=== PATIENT | male | born 1960 | race Caucasian/White ===

== ENCOUNTER 2024-09-01 08:00 | Inpatient (IN) | payer BC, OTHER ==
[2024-09-04 10:57] VITALS: BMI 28.9
[2024-09-08] MEDS ORDERED: MIDAZOLAM HCL 2 MG/2 ML SINGLE DOSE VIAL ONE (10:04)
[2024-09-08] MEDS ORDERED: ROCURONIUM BROMIDE 50 MG/5 ML SYRINGE ONE (10:04)
[2024-09-08] MEDS ORDERED: PROPOFOL 20 ML ONE (10:04)
[2024-09-08] MEDS ORDERED: LIDOCAINE HCL/PF 2% SDV 5ML VIAL ONE (10:04)
[2024-09-08] MEDS ORDERED: SUCCINYLCHOLINE CHLORIDE 200 MG/10 ML SYRINGE ONE (10:04)
[2024-09-08] MEDS ORDERED: LIDOCAINE 1%/EPI 1:100000 (20 ML MULTI DOSE VIAL) ONE (10:44)
[2024-09-08] MEDS ORDERED: GENTAMICIN SO4 80 MG/2 ML VIAL ONE (10:44)
[2024-09-08] MEDS: VANCOMYCIN 1,000 MG VIAL (RESTRICTED TO ID ONLY) IVPB ONE ×2 (11:38)
[2024-09-08] MEDS: ceFAZolin SODIUM 1 GM VIAL IVPB ONE ×2 (11:38)
[2024-09-08] MEDS ORDERED: TRANEXAMIC ACID 1000 MG/10 ML VIAL ONE (11:40)
[2024-09-08] MEDS ORDERED: DEXAMETHASONE SOD PHOSPHATE 4 MG/1 ML VIAL ONE (11:40)
[2024-09-08] MEDS ORDERED: ceFAZolin SODIUM 1 GM VIAL ONE (11:40)
[2024-09-08] MEDS ORDERED: VANCOMYCIN 1,000 MG VIAL (RESTRICTED TO ID ONLY) ONE (11:40)
[2024-09-08] MEDS: LIDOCAINE 1%/EPI 1:100000 (20 ML MULTI DOSE VIAL) IJ ONE ×2 (11:47)
[2024-09-08] MEDS ORDERED: ONDANSETRON 4 MG/2 ML VIAL IVPUSH PRN ×2 (11:48→13:35)
[2024-09-08] MEDS ORDERED: PROMETHAZINE HCL 25 MG/1 ML VIAL IVPB PRN (11:48)
[2024-09-08] MEDS: HYDROGEN PEROXIDE 473 ML PO ONE ×2 (12:06)
[2024-09-08] MEDS: GENTAMICIN SO4 80 MG/2 ML VIAL IVPB ONE ×2 (12:06)
[2024-09-08] MEDS ORDERED: ONDANSETRON 4 MG/2 ML VIAL ONE (12:45)
[2024-09-08] MEDS ORDERED: SUGAMMADEX SODIUM 200 MG/2 ML VIAL ONE (12:45)
[2024-09-08] MEDS ORDERED: diphenhydrAMINE HCL 25 MG CAPSULE (FP) PO PRN (13:35)
[2024-09-08] MEDS ORDERED: ACETAMINOPHEN INJECTION 100 ML ONE (13:46)
[2024-09-08] MEDS: ACETAMINOPHEN 1000 MG/100 ML BAG IVPB SCH (13:57)
[2024-09-08] MEDS: LACTATED RINGERS SOLUTION 1,000 ML/1,000 ML INFUS.BAG IV SCH (14:03)
[2024-09-08] MEDS: DOCUSATE SODIUM 100 MG CAPSULE (FP) PO SCH (17:36)
[2024-09-08] MEDS: LACTATED RINGERS SOLUTION 1,000 ML IV SCH (17:37)
[2024-09-08] MEDS: oxyCODONE HCL 5 MG TABLET PO PRN (19:34)
[2024-09-08] MEDS: CEFAZOLIN 1 GM/D5W 1 GM/50 ML BAG IVPB SCH (19:37)
[2024-09-08] MEDS: HEPARIN NA (PORCINE) 5,000 UNITS/ML 1ML VIAL SQ SCH (21:08)
[2024-09-08] MEDS: morphine SULFATE 4 MG/ML VIAL IVPUSH PRN (21:08)
[2024-09-09 08:15] LABS: HEMATOCRIT 39.7 % (40.1-51.0); HEMOGLOBIN 13.1 g/dL (13.7-17.5); MEAN CELL VOLUME 102.3 fl (79.0-92.2); MEAN PLT VOLUME 10.8 fl (9.4-12.4); PLATELET COUNT 155 x10^3/uL (163-337); RDW 13.2 % (12.2-16.4)
[2024-09-09 08:35] LABS: POTASSIUM 3.8 mmol/L (3.5-5.1)
[2024-09-09] MEDS: TAMSULOSIN HCL 0.4 MG CAP PO SCH (08:35)
[2024-09-09 08:40] LABS: CALCIUM 9.4 mg/dL (8.5-10.1)
[2024-09-09 08:41] LABS: BLOOD UREA NITROGEN 15.2 mg/dL (7-18)
[2024-09-09 08:44] LABS: CREATININE 0.8 mg/dL (0.55-1.3)
[2024-09-09] MEDS: NICOTINE 14 MG/24 HOURS TOPICAL PATCH TD SCH (09:07)
[2024-09-09] MEDS: LISINOPRIL 10 MG TABLET PO SCH (09:07)
[2024-09-09] MEDS: FINASTERIDE 5 MG TABLET (FP) PO SCH (09:07)
[2024-09-09] MEDS: ACETAMINOPHEN 500 MG TABLET (FP) PO SCH (14:09)
[2024-09-09 17:24] VITALS: BP 156/80; PULSE 65; RESP 20; TEMP 98.4
== END 2024-09-09 18:16 | disposition home or self-care (01) | DRG 321 ==
LOC: J2C 09-08 06:11 → J8W 09-08 16:25
PROVIDERS: ADMIT Internal Medicine; ATTEND Internal Medicine
PROC: 00NW0ZZ Release Cervical Spinal Cord, Open Approach (ICD-10-PCS; 2024-09-08)
PROC: 0RB30ZZ Excision of Cervical Vertebral Disc, Open Approach (ICD-10-PCS; 2024-09-08)
PROC: 4A11X4G Monitoring of Peripheral Nervous Electrical Activity, Intraoperative, External Approach (ICD-10-PCS; 2024-09-08)
PROC: 0RG20A0 Fusion of 2 or more Cervical Vertebral Joints with Interbody Fusion Device, Anterior Approach, Anterior Column, Open Approach (ICD-10-PCS; principal; 2024-09-08 11:30)
DX: M47.12 Other spondylosis with myelopathy, cervical region (principal); I10 Essential (primary) hypertension
CPT/HCPCS: 36415; 72125-TC; 76000-TC-FY; 80048; 85027; 86850; 86900; 86901; 94010; 94760; 97116-GP; 97161-GP; C1713; J0131; J1644